=== PATIENT | female | born 1990 | race Caucasian/White ===

== ENCOUNTER 2018-02-25 21:21 | Observation (INO) | payer MEDICAID, SELFPAY ==
[2018-02-25 22:03] VITALS: BMI 32.1
[2018-02-25] MEDS ORDERED: Milk Of Magnesia 30 ML UDCUP PO PRN (22:50)
[2018-02-25] MEDS ORDERED: Ondansetron HCl/PF 4 MG/2 ML Vial IVP PRN (22:50)
[2018-02-25] MEDS ORDERED: Ondansetron ODT 4 MG TAB PO PRN (22:50)
[2018-02-25] MEDS ORDERED: Acetaminophen 325 MG TAB PO PRN (22:50)
[2018-02-25] MEDS ORDERED: Acetaminophen 650 MG Suppository PR PRN (22:50)
[2018-02-25] MEDS ORDERED: Calcium Carbonate 500 MG ChewTAB PO PRN (22:50)
[2018-02-25] MEDS ORDERED: Famotidine/PF 20 mg/2ml Vial SLOW IVP SCH (23:00)
[2018-02-26] MEDS: D5 1/2 NS w/20 mEq KCL 1,000 ML IV SCH ×3 (00:44→14:49)
[2018-02-26] MEDS: Piperacillin/Tazobactam 3.375 GM in Sodium Chloride 0.9% 100 ML IVPB SCH ×3 (00:44→10:58)
[2018-02-26] MEDS ORDERED: Ketorolac Tromethamine 30 MG/ML VIAL IVP PRN (00:59)
--- NOTE | 2018-02-26 01:38 | HP ---
DATE OF ADMISSION: 02/25/2018 PRIMARY CARE PHYSICIAN: Dr. Mellisa Burroughs. The patient was seen and examined on 02/25/2018. CHIEF COMPLAINT: Nausea, vomiting with abdominal discomfort of one-day duration. HISTORY OF PRESENT ILLNESS: Patient is a 27-year-old female who presented to the emergency room at [facility] with nausea, vomiting, and abdominal discomfort that has been going on for the last 24 ho urs. She had several bouts of vomiting along with abdominal cramping, mainly over the right upper qu adrant and epigastric region. She denies any diarrhea, constipation, or weight loss. No fever or ch ills reported. She is currently on her menstrual period. She denies any headache, photophobia, phon ophobia, or eating outside. No other family members with similar complaint. In the emergency room at [place], her initial vital signs showed temperature 95.4, respirations 24, pulse of 53 with blood pressure 132/66 with O2 saturation of 100% on room air. White cell count was 15.6 with neutrophils of 89.7. 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 PAST MEDICAL HISTORY: Reviewed with the patient and none. PAST SURGICAL HISTORY: Reviewed with the patient and none. ALLERGIES: The patient is allergic to FLEXERIL. CURRENT HOME MEDICATIONS: Reviewed with the patient and none. SOCIAL HISTORY: She abuses cannabis on a daily basis. She also smokes cigarettes. She currently li ves at home with her family. 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 FAMILY HISTORY: Positive for diabetes mellitus type 2. REVIEW OF SYSTEMS: The following complete review of systems was negative, unless otherwise mentioned in the HPI or below: Constitutional: Weight loss or gain, ability to conduct usual activities. Sk in: Rash, itching. Eyes: Double vision, pain. ENT/Mouth: Nose bleeding, neck stiffness, pain, te nderness. Cardiovascular: Palpitations, dyspnea on exertion, orthopnea. Respiratory: Shortness of breath, wheezing, cough, hemoptysis, fever or night sweats. Gastrointestinal: Poor appetite, abdom inal pain, heartburn, nausea, vomiting, constipation, or diarrhea. Genitourinary: Urgency, frequenc y, dysuria, nocturia. Musculoskeletal: Pain, swelling. Neurologic/Psychiatric: Anxiety, depressio n. Allergy/Immunologic: Skin rash, bleeding tendency. PHYSICAL EXAMINATION: VITAL SIGNS: As discussed above. GENERAL: A 27-year-old female in mild distress due to abdominal discomfort. Nausea has somewhat imp roved. HEENT: Atraumatic, normocephalic. Sclerae are anicteric. Moist mucous membrane. No oral lesion. NECK: Supple. No JVD appreciated. No carotid bruits. LUNGS: Clear to auscultation bilaterally. No wheezing, rales or rhonchi. HEART: S1, S2 present. Regular rate and rhythm. No murmur, rubs, or gallops appreciated. ABDOMEN: Diffusely tender mainly over the right side. No rebound, guarding, or costovertebral angle tenderness. Bowel sounds were present. EXTREMITIES: No edema or calf tenderness. NEUROLOGIC: Grossly nonfocal. Moves all four extremities. PSYCHIATRY: Alert, awake, oriented x3. SKIN: Warm and dry. LYMPH NODES: No palpable lymph nodes in the neck. PERIPHERAL VASCULAR: Radial pulses palpable bilaterally. MUSCULOSKELETAL: No joint swelling or tenderness. LABORATORY AND X-RAY FINDINGS: As discussed above. Sodium was 141, potassium 3.6 with creatinine 0. 7. LFTs were normal range. Amylase and lipase were in normal range. Urinalysis was negative for wb c's. It showed 1+ bacteria. test was negative. IMPRESSION AND PLAN: 1. Nausea, vomiting with abdominal discomfort. The patient has leukocytosis with left shift. Right upper quadrant ultrasound will be done to rule out gallbladder pathology. 2. Dehydration secondary to #1. Patient has been started on IV fluids. She will be kept n.p.o. 3. Tobacco dependence. The patient was counseled. 4. Cannabis abuse. The patient was counseled to quit cannabis as this may be contributing to nausea and vomiting. 5. Metabolic acidosis secondary to dehydration. We will repeat labs in a.m. 6. Obesity with body mass index of 32.1. Lifestyle modification was emphasized. Plan of care was discussed with the patient in detail. She stated understanding. The patient will be monitored overnight as observation. Further hospital course will depend on the r ight upper quadrant ultrasound finding.
[2018-02-26] MEDS ORDERED: Sodium Chloride 0.9% 10 ML ONE ×2 (04:32→06:06)
[2018-02-26 05:13] LABS: #Lymphocytes 2.1 thou/uL (1.20-3.40); #Monocytes 0.7 thou/uL (0.11-0.59); #Neutrophils 9.1 thou/uL (1.40-6.50); %Basophils 0.1 % (0.0-1.0); %Eosinophils 0.3 % (0.0-10.0); %Lymphocytes 17.8 % (21.0-51.0); %Monocytes 5.6 % (0.0-10.0); %Neutrophils 76.3 % (42.0-75.0); Hemoglobin 12.2 g/dL (12.0-16.0); Mean Corpuscular HGB CONC 34.2 g/dL (32.0-36.0); Mean Corpuscular Hemoglobin 30.1 pg (27.0-31.0); Mean Corpuscular Volume 88.1 fl (81.0-99.0); Mean Platelet Volume 6.8 fL (7.4-10.4); Platelet Count 235 thou/uL (130-400); RBC Distribution Width 12.5 % (11.5-14.5); Red Blood Cell (RBC) Count 4.05 mill/uL (4.20-5.40); White Blood Cell (WBC) Count 11.9 thou/uL (4.8-10.8)
[2018-02-26 05:36] LABS: ALT (SGPT) 7 U/L (8-55); AST (SGOT) 12 U/L (5-34); Albumin 3.8 g/dL (3.5-5.0); Alkaline Phosphatase 51 U/L (40-150); Anion Gap 10 mmol/L (10-20); BUN (Urea Nitrogen) 7 mg/dL (7.0-18.7); Bilirubin, Total 0.4 mg/dL (0.2-1.2); Calc. Creatinine Clearance 188 mL/min (70-130); Calcium 8.5 mg/dL (7.8-10.44); Carbon Dioxide 22 mmol/L (22-29); Chloride 110 mmol/L (98-107); Estimated GFR-MDRD Greater than 90; Globulin 2.2 g/dL (2.4-3.5); Glucose 133 mg/dL (70-105); Lipase 19 U/L (8-78); Magnesium 1.8 mg/dL (1.6-2.6); Potassium 3.7 mmol/L (3.5-5.1); Sodium 138 mmol/L (136-145)
--- NOTE | 2018-02-26 07:53 | ULT ---
RIGHT UPPER QUADRANT ULTRASOUND: DATE: 02/25/18. HISTORY: Right upper quadrant abdominal pain and nausea FINDINGS: Multiple mobile echogenic foci are seen in the gallbladder lumen related to multiple gallbladder calc matt. The gallbladder wall thickness is borderline increased in thickness measuring 0.3 cm with a que stion of minimal edema within the region of the gallbladder wall. Pipeline Integrity Engineer mentions perichol ecystic fluid, although this is not readily appreciated on the provided sonographic images. The comm on duct measures 0.3 cm diameter, which is within normal limits. The visualized portions of the pancreas, visualized portions of the IVC, liver, and right kidney demo nstrate a normal sonographic appearance. The right kidney measures 11.5 cm in length. IMPRESSION: Cholelithiasis with borderline gallbladder wall thickening. If there is concern for cholecystitis, h epatobiliary study may be helpful for further evaluation. POS: [facility]
[2018-02-26] MEDS ORDERED: Famotidine/PF 20 mg/2ml Vial SLOW IVP SCH (09:00)
--- NOTE | 2018-02-26 09:09 | PDOC.PN ---
- Subjective Encounter Start Date: 02/26/18 Encounter Start Time: 09:07 Subjective: N/V especially with menses - Objective Resuscitation Status: Resuscitation Status FULL:Full Resuscitation MAR Reviewed: Yes Vital Signs & Weight: Vital Signs (12 hours) Temp Pulse Resp BP BP Pulse Ox 02/26/18 08:30 55 L 16 105/53 L 02/26/18 07:43 98.6 F 61 18 100 02/26/18 04:36 99.7 F H 70 16 109/54 L 97 02/25/18 22:50 96 02/25/18 22:40 99.0 F 51 L 20 02/25/18 22:38 99.0 F 51 L 20 107/62 98 Weight Weight 204 lb 11.2 oz I&O: 02/25/18 02/26/18 02/27/18 06:59 06:59 06:59 Intake Total 630 Output Total 226 Balance 404 Result Diagrams: 02/26/18 04:22 02/26/18 04:22 Phys Exam - Physical Examination Neck: no JVD Respiratory: clear to auscultation bilateral Cardiovascular: RRR, no significant murmur Gastrointestinal: soft, positive bowel sounds Musculoskeletal: no edema Dx/Plan (1) Nausea & vomiting Code(s): R11.2 - NAUSEA WITH VOMITING, UNSPECIFIED Status: Acute (2) Cholelithiasis Code(s): K80.20 - CALCULUS OF GALLBLADDER W/O CHOLECYSTITIS W/O OBSTRUCTION Status: Acute Qualifiers: Cholelithiasis location: gallbladder Biliary obstruction: without biliary obstruction (3) Abdominal pain Code(s): R10.9 - UNSPECIFIED ABDOMINAL PAIN Status: Acute (4) Tobacco abuse Code(s): Z72.0 - TOBACCO USE Status: Acute - Plan HIDA scan pending * .
[2018-02-26 11:38] VITALS: BP 122/57; TEMP 98.7
--- NOTE | 2018-02-26 14:50 | DIS ---
DATE OF ADMISSION: 02/25/2018 DATE OF DISCHARGE: 02/26/2018 PRIMARY CARE PROVIDER: Mellisa Burroughs M.D. DIAGNOSES: 1. Nausea and vomiting, resolved. 2. Abdominal pain, resolved. 3. Tobacco abuse. 4. Cholelithiasis. DISCHARGE MEDICATIONS: Zofran 4 mg oral dissolving tablet q.6 hours p.r.n. CODE STATUS: FULL. PENDING AT THE TIME OF DISCHARGE: Nothing. DIET: As tolerated. CONSULTATIONS: None. PROCEDURES: None. HOSPITAL COURSE: The patient referred for nausea, vomiting, and abdominal discomfort for 24 hours. She states to me that this happens mostly at the beginning of her periods. She says she has very trenton nful periods and it has started. Physical examination was unrevealing. Laboratories: CBC: White c ount 11.9, hemoglobin 12.2, platelet count 235,000. Liver function tests normal. Chemistries normal . A gallbladder ultrasound revealed cholelithiasis with borderline gallbladder wall thickening. Thi s was discussed with her. A HIDA scan was scheduled. She decided against having it. She said she f elt fine. She did not want to have the HIDA scan and wanted to be discharged. I have discussed the situation with her, recommended followup with her PCP in 1 week, gave her a prescription for Zofran o ral dissolving tablets 4 mg p.o. q.6 hours p.r.n.
[2018-02-26] MEDS ORDERED: Enoxaparin Sodium 30 MG/0.3 ML SYRINGE SC SCH (21:00)
== END 2018-02-26 15:26 | disposition home or self-care (01) ==
LOC: 2SW 21:21
PROVIDERS: ADMIT Internal Medicine; ATTEND Internal Medicine
DX: R11.2 Nausea with vomiting, unspecified (principal); R10.11 Right upper quadrant pain; R10.13 Epigastric pain; K80.20 Calculus of gallbladder without cholecystitis without obstruction; F17.210 Nicotine dependence, cigarettes, uncomplicated; F12.10 Cannabis abuse, uncomplicated; E86.0 Dehydration; E87.2 Acidosis; E66.9 Obesity, unspecified; Z68.32 Body mass index [BMI] 32.0-32.9, adult; Z88.8 Allergy status to other drugs, medicaments and biological substances
CPT/HCPCS: 36415; 76705; 80053; 83690; 83735; 85025; 96361; 96365; 96366; 96375; 96376; A4216; G0378; J1885; J2405; J2543; J7050; S0028

== ENCOUNTER 2018-12-14 13:31 | Outpatient (CLI) | payer OTHER ==
--- NOTE | 2018-12-14 15:02 | ULT ---
COMPLETE OBSTETRICAL ULTRASOUND: INDICATIONS: Evaluate anatomy and cervical length. COMPARISON: None. FINDINGS: There is a single live intrauterine gestation in a vertex presentation. The placenta is anterior in location without evidence of previa. The cervical length is 3.4 cm. The ANNETTA is 14.5 cm. Small plac ental conrad is seen within the placenta, within its mid substance, measuring up to 2 cm in size. Cardiac activity is noted at 128 beats per minute. Biparietal diameter is 4.73 cm, giving an estimated gestational age of 20 weeks 3 days. Head circumference is 18.38 cm, giving an estimated gestational age of 20 weeks 6 days. Abdominal circumference is 15.1 cm, giving an estimated gestational age of 20 weeks 3 days. Femoral length is 3.41 cm, giving an estimated gestational age of 20 weeks 6 days. The average gestational age by ultrasound, based on the biometric measurements, is 20 weeks 5 d ays, with an estimated due date of 04/28/2019. This does correspond to the clinical dates. The estimated weight is 359 g, plus or minus 53 g (13 oz, plus or minus 2 oz). This is the 35t h percentile, based on Hadlock. The visualized head was poorly visualized. The lateral ventricles were or normal size. The c erebellum and posterior fossa were not well interrogated. Four-chamber heard, stomach, kidneys, bladder, cord insertion, spine, extremities, and three vessel c ord were within normal limits. Lips and nose were not well seen. IMPRESSION: 1. Single live intrauterine gestation, with size and dates as above. 2. The head was not well seen due to positioning. The lips and nose were not well seen. A follow-up examination in one to two weeks to document a full anatomic survey is recommended. 3. Small suspected placenta conrad within the central aspect of the placenta. 4. Cervical length of 3.4 cm. POS: [facility]
== END 2018-12-14 13:32 | disposition home or self-care (01) ==
LOC: BICULT 13:31
PROVIDERS: ATTEND Family Medicine
DX: Z34.02 Encounter for supervision of normal first pregnancy, second trimester (principal); Z3A.12 12 weeks gestation of pregnancy
CPT/HCPCS: 76805

== ENCOUNTER 2020-01-19 14:39 | Outpatient (CLI) | payer OTHER ==
--- NOTE | 2020-01-19 15:50 | ULT ---
OB ULTRASOUND: 01/19/20 HISTORY: anatomy. FINDINGS: There is a single live intrauterine gestation is seen and the measurements corresponding to an estim ated gestational age of 20 weeks, 2 days and RACHEAL at 06/05/2020. Estimated weight measures 338 gr ams or 12 oz (73rd percentile by Hadlock criteria). measurements are as follows: BPD 4.64 cm 20 weeks, 1 day HC 17.75 cm 20 weeks, 2 days AC 14.91 cm 20 weeks, 2 days FL 3.27 cm 20 weeks, 2 days heart rate measures 139 beats per minute. Placenta is anteriorly located without evidence of pl acenta previa. ANNETTA measures 15.1 cm. Cervical length measures 4.5 cm. A three vessel cord, cord insertion, kidneys, bladder, stomach, four chambered heart, lateral v entricles, cerebellum, spine, lips/nose, upper and lower extremities are visualized. No definite feta l anomalies are seen. IMPRESSION: Single live IUP of 20 weeks, 2 days estimated gestational age and RACHEAL at 06/05/2020. POS: [facility]
== END 2020-01-19 14:40 | disposition home or self-care (01) ==
LOC: BICULT 14:39
PROVIDERS: ATTEND Family Medicine
DX: Z34.82 Encounter for supervision of other normal pregnancy, second trimester (principal); Z3A.20 20 weeks gestation of pregnancy
CPT/HCPCS: 76805

== ENCOUNTER 2020-02-18 16:36 | Day surgery (SDC) | payer OTHER ==
[2020-02-18] MEDS ORDERED: hydrALAZINE 20 MG/ML VIAL SLOW IVP PRN (16:59)
[2020-02-18 17:17] VITALS: BMI 40.7
[2020-02-18] MEDS ORDERED: Ondansetron ODT 4 MG TAB PO SCH (17:18)
[2020-02-18] MEDS ORDERED: Lidocaine 2% Viscous Solution 10 ML, Aluminum & Magnesium Hydroxide 30 ML SSW SCH (17:30)
[2020-02-18] MEDS ORDERED: Acetaminophen 500 MG TAB PO SCH (17:30)
[2020-02-18 17:44] LABS: #Basophils 0.1 thou/uL (0.0-0.2); #Eosinphils 0.1 thou/uL (0.0-0.7); #Lymphocytes 2.3 thou/uL (1.20-3.40); #Monocytes 0.6 thou/uL (0.11-0.59); #Neutrophils 9.8 thou/uL (1.40-6.50); %Basophils 0.7 % (0.0-1.0); %Lymphocytes 17.6 % (21.0-51.0); %Monocytes 4.9 % (0.0-10.0); %Neutrophils 75.8 % (42.0-75.0); Hemoglobin 11.5 g/dL (12.0-16.0); Mean Corpuscular HGB CONC 33.1 g/dL (32.0-36.0); Mean Corpuscular Hemoglobin 28.4 pg (27.0-31.0); Mean Corpuscular Volume 85.9 fL (78.0-98.0); Platelet Count 306 thou/uL (130-400); RBC Distribution Width 13.4 % (11.5-14.5); Red Blood Cell (RBC) Count 4.05 mill/uL (4.20-5.40)
--- NOTE | 2020-02-18 17:48 | PDOC.FPROB ---
FMR OB H&P: HPI - History of Present Illness Chief Complaint: Upper Abdominal Pain Indentification: 29 yo @ 24.0 wks History of Present Illness: 29 yo comes in with worsening epigastric abdominal pain. Reports radiates to her back and chest. Reports pain as dull stabbing pain. Pt states has been going off and on for the last week. Reports took some tums which didn't seem to help. Took some tylenol which helped for a little bit but then pain came back. Reports having episodes of vomiting once or twice a day the last few days. Was able to eat and keep down today. Pt denies any SOB. Denies any fever or chills. Pt denies any urinary sx's, burning with urination. Pt denies any vaginal discharge, itching or irritation. Pt denies any vaginal bleeding. Reports FM. Denies ctx. Denies LOF. Pt denies any leg swelling. Pt reports having history of being told she had gallstones. Pt never addressed as she got with her first kid. States did not have any trouble in that . 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 Reports vaping. Denies any alcohol or illicit drug use - Family History Family History: Hx of cancer in the family unsure of what kind. Mom- diabetes. FMR OB H&P: Medications - Current Home Medications: Medication Instructions Recorded Confirmed Type Calcium Carbonate [Tums] 1,000 mg PO QAM-WM 04/25/19 04/25/19 History Pnv No.121/Iron/Folic Acid 1 each PO DAILY 04/25/19 04/25/19 History [ Multivitamin Tablet] Ferrous Sulfate [Feosol] 325 mg PO BID-WM #90 tab 04/27/19 Rx Acetaminophen [Tylenol Extra 1,000 mg PO NOW tab 02/18/20 Rx Strength] Famotidine 20 mg PO BID #60 tablet 02/18/20 Rx Ondansetron [Zofran ODT] 4 mg PO Q6HR PRN #30 tab 02/18/20 Rx Allergies/Adverse Reactions: Allergies Allergy/AdvReac Type Severity Reaction Status Date / Time cyclobenzaprine Allergy Severe Swollen Verified 02/18/20 17:16 [From Flexeril] Lips FMR OB H&P: ROS - Review of Systems General: denies: fever/chills, weight/appetite/sleep changes Eyes: denies: vision changes, double vision ENT: denies: nasal congestion Cardiovascular: reports: chest pain. denies: palpitation, edema Respiratory: denies: cough, congestion, shortness of breath Gastrointestinal: reports: abdominal pain, nausea, vomiting. denies: indigestion, bloating, cramping, diarrhea, constipation Genitourinary (Female): denies: incontinence, dysuria, hematuria, vaginal discharge, vaginal pain, vaginal bleeding, contractions, vaginal pressure Musculoskeletal: denies: pain, tenderness Neurologic: denies: numbness, weakness Integumentary: denies: itching, rash Hematologic/Lymphatic: denies: prolonged or excessive bleeding Psychological: denies: depression, anxiety FMR OB H&P: Vital Signs - Heart Tones Baseline: 138 (by doppler) FMR OB H&P: Physical Exam - Physical Exam General: NAD, awake, alert and oriented HEENT: normocephalic and atraumatic, PERRLA, grossly normal vision, grossly normal hearing Neck: supple, FROM, trachea midline Heart: RRR, normal S1/S2, no murmurs/rubs/gallops, pulses present, no edema General: CTAB, no respiratory distress, good air movement, no rales/rhonchi, no wheezing, no retractions Abdomen: soft, gravid, bowel sound present, other (No rebound or guarding. Foot tap negative for abdominal pain. No CVA tenderness) Deviation from normal: Smiley negative. Mild tenderness to deep palpation in RUQ , Neurological: sensation to pain,touch and proprioception grossly normal Skin: no rash, good tugor, capillary refill <2 seconds, no jaundice Lymphatic: no unusual bruising or bleeding FMR OB H&P: Results - Labs Lab results: Laboratory Results - last 24 hr 02/18/20 17:35 WBC 13.0 H RBC 4.05 L Hgb 11.5 L Hct 34.8 L MCV 85.9 MCH 28.4 MCHC 33.1 RDW 13.4 Plt Count 306 MPV 7.0 L Neutrophils % 75.8 H Lymphocytes % 17.6 L Monocytes % 4.9 Eosinophils % 1.0 Basophils % 0.7 Neutrophils # 9.8 H Lymphocytes # 2.3 Monocytes # 0.6 H Eosinophils # 0.1 Basophils # 0.1 FMR OB H&P: A/P - Problem List (1) (spontaneous vaginal delivery) Status: Acute Code(s): O80 - ENCOUNTER FOR FULL-TERM UNCOMPLICATED DELIVERY (2) Abdominal pain Status: Acute Code(s): R10.9 - UNSPECIFIED ABDOMINAL PAIN (3) Cholelithiasis Status: Acute Code(s): K80.20 - CALCULUS OF GALLBLADDER W/O CHOLECYSTITIS W/O OBSTRUCTION Qualifiers: Cholelithiasis location: gallbladder Biliary obstruction: without biliary obstruction (4) Nausea & vomiting Status: Acute Code(s): R11.2 - NAUSEA WITH VOMITING, UNSPECIFIED (5) Tobacco abuse Status: Acute Code(s): Z72.0 - TOBACCO USE Disposition: 29 yo @ 24.0 weeks comes in w/ upper abdominal pain Cholelithiasis -Will order CBC and CMP to check on bili and liver enzymes -RUQ US ordered -Discussed low fat diet to help prevent pain. Discussed pain control -Tylenol given -Does not appear to have any sign of infection or problem that requires immediate intervention. Likely will need addressed post pending lab results and sono. GERD -Possibly contributing -Zofran and GI cocktail-White administered. Will see if helps with pain and possibly px some medicine for outpt \ -UA ordered - HR 130's. Tobacco Abuse -Counseled on cessation Discussion: Date/Time: 02/18/201743 This H&P was discussed with [] and [] who agree with the above documentation and plan. Addendum - Attending - Attending Attestation Date/Time: 02/18/202025 I personally evaluated the patient and discussed the management with Dr. Ames. I agree with the History, Examination, Assessment and Plan documented above.
--- NOTE | 2020-02-18 18:01 | ULT ---
RIGHT UPPER QUADRANT ULTRASOUND CLINICAL HISTORY: Right upper quadrant abdominal pain with history of and gallstones. COMPARISON: Prior right upper quadrant ultrasound dated September 27, 2017 FINDINGS: Liver:Normal echotexture without focal mass. Intrahepatic bile ducts: No intrahepatic or extrahepatic biliary dilation.; Common bile duct: 5.4 mm. Gallbladder: Multiple stones within the gallbladder. No gallbladder wall thickening is evident. Smiley's sign:None Main portal vein:Patent with hepatopedal flow. Pancreas:Visualized pancreas appears normal. Right kidney: Right kidney measures 12.9 x 4.8 x 5.7 cm. No focal renal lesion. Mild right hydronephr osis. Additional findings: None. IMPRESSION: 1. Cholelithiasis without sonographic evidence of acute cholecystitis. 2. Mild right hydronephrosis. This may be physiologic in nature related to patient's .
[2020-02-18 18:04] LABS: ALT (SGPT) 42 U/L (8-55); AST (SGOT) 69 U/L (5-34); Albumin 3.7 g/dL (3.5-5.0); Alkaline Phosphatase 166 U/L (40-110); Anion Gap 13 mmol/L (10-20); BUN (Urea Nitrogen) 6 mg/dL (7.0-18.7); Bilirubin, Total 0.7 mg/dL (0.2-1.2); Calc. Creatinine Clearance 242 mL/min (70-130); Calcium 9.9 mg/dL (7.8-10.44); Carbon Dioxide 25 mmol/L (22-29); Chloride 103 mmol/L (98-107); Estimated GFR-MDRD Greater than 90; Globulin 3.2 g/dL (2.4-3.5); Glucose 85 mg/dL (70-105); Potassium 3.8 mmol/L (3.5-5.1); Protein, Total 6.9 g/dL (6.0-8.3); Sodium 137 mmol/L (136-145)
[2020-02-18 18:06] LABS: Bacteria/HPF None Seen HPF (None Seen); Bilirubin Negative (Negative); Blood, Urine Negative (Negative); Clarity Clear (Clear); Glucose, Urine (Dipstick) Normal (Negative); Leukocyte Negative Leu/uL (Negative); Nitrite Negative (Negative); Protein, Urine (Dipstick) Negative (Neg-Trace); RBC/HPF 0-3 HPF (0-3); Squamous Epithelial 0-3 HPF (0-3); Urobilinogen Normal mg/dL (Less than 2); WBC/HPF 0-3 HPF (0-3)
== END 2020-02-18 18:50 | disposition home or self-care (01) ==
LOC: L&D/OP 16:36
PROVIDERS: ATTEND Internal Medicine
DX: O99.612 Diseases of the digestive system complicating pregnancy, second trimester (principal); K80.20 Calculus of gallbladder without cholecystitis without obstruction; K21.9 Gastro-esophageal reflux disease without esophagitis; O99.89 Other specified diseases and conditions complicating pregnancy, childbirth and the puerperium; N13.30 Unspecified hydronephrosis; O99.332 Smoking (tobacco) complicating pregnancy, second trimester; F17.290 Nicotine dependence, other tobacco product, uncomplicated; Z79.899 Other long term (current) drug therapy; Z3A.24 24 weeks gestation of pregnancy; Z88.8 Allergy status to other drugs, medicaments and biological substances
CPT/HCPCS: 36415; 76705; 80053; 81003; 85025; Q0162

== ENCOUNTER 2020-05-29 21:06 | Day surgery (SDC) | payer OTHER ==
[2020-05-29 22:05] LABS: Amnisure Test No Membranes Rupture (No Rupture)
[2020-05-29 22:06] LABS: Amnisure Internal Control QC ACCEPTABLE (ACCEPTABLE)
[2020-05-29] MEDS ORDERED: hydrALAZINE 20 MG/ML VIAL SLOW IVP PRN (22:40)
--- NOTE | 2020-05-29 23:34 | CON ---
DATE OF CONSULTATION: 05/29/2020 PRIMARY OB: Eduardo Burnett MD CHIEF COMPLAINT: Leakage of fluid. HISTORY OF PRESENT ILLNESS: The patient is a 30-year-old G2, P1 female with an intrauterine at 38 weeks and 3 days, presenting with complaints of leakage of fluid. The patient reports that she has had on three different occasions leaking fluid today. This has not been so much that it is overflown her panty liner, but her pad has gotten wet. She says that she wiped once a day that was more of a mucousy kind of a bloody white. She denies having any leaking down her leg or other gross leakage of fluid. She reports she is having some contractions, but not really feeling anything real severe. The patient denies fever, cough, headache, chest pain, shortness of breath, nausea, or vomiting. She has had some loose stools. Denies constipation. PAST MEDICAL HISTORY: She does have a history of gallbladder stones that she has managed with this . PAST SURGICAL HISTORY: Negative. ALLERGIES: FLEXERIL. MEDICATIONS: 1. Iron. 2. vitamins. SOCIAL HISTORY: The patient is a tobacco user. She smokes about a couple cigarettes a day. Denies drug or alcohol use. She reports that she discontinued marijuana in August 2019. OB LABS: Blood type is O positive. Antibody screen is negative. RPR is nonreactive in the first and third trimester. HIV is negative in the first and third trimester. She is rubella nonimmune. GC and chlamydia negative. 1-hour Glucola is 105. She is GBS negative. REVIEW OF SYSTEMS: Per HPI. PHYSICAL EXAMINATION: VITAL SIGNS: Blood pressure is 130/66, heart rate of 88, respiratory rate of 18, saturating 97% on room air, and temperature 98.3. GENERAL: She appears to be in no acute distress. She is alert, oriented, cooperative, and pleasant to interact with. HEAD: Normocephalic and atraumatic. LUNGS: Clear to auscultation bilaterally. HEART: She has a regular rate and rhythm. ABDOMEN: Gravid, soft, and nontender. EXTREMITIES: Nontender and nonedematous. : Vulva is without masses, lesions, or erythema. Vagina is moist. There is no pulling present. She has a visibly closed cervix with just a thick mucousy discharge present at the cervical os. EXTREMITIES: Nontender with minimal edema. DIAGNOSTIC DATA: heart tracing shows the fetus with a baseline in the 130s with moderate long-term variability, positive 15 x 15 accelerations. Tocometer showing occasional contractions with some irritability. AmniSure test is negative. ASSESSMENT AND PLAN: The patient is a 30-year-old female, presenting with complaints of rupture of membranes. No evidence on physical exam or on laboratory testing. Fetus has a category 1 tracing and reactive NST. The patient is being discharged home with instructions to follow up with her primary OB on as scheduled. Job ID: [id number]
== END 2020-05-29 22:45 | disposition home or self-care (01) ==
LOC: L&D/OP 21:06
PROVIDERS: ATTEND Family Medicine
DX: O99.89 Other specified diseases and conditions complicating pregnancy, childbirth and the puerperium (principal); N89.8 Other specified noninflammatory disorders of vagina; O99.333 Smoking (tobacco) complicating pregnancy, third trimester; F17.210 Nicotine dependence, cigarettes, uncomplicated; Z3A.38 38 weeks gestation of pregnancy; Z87.19 Personal history of other diseases of the digestive system; Z88.8 Allergy status to other drugs, medicaments and biological substances
CPT/HCPCS: 84112

== ENCOUNTER 2020-06-01 08:50 | Inpatient (IN) | payer OTHER ==
[2020-06-01] MEDS ORDERED: hydrALAZINE 20 MG/ML VIAL SLOW IVP PRN ×3 (09:12→17:51)
[2020-06-01 09:31] VITALS: BMI 41.5
[2020-06-01] MEDS ORDERED: Butorphanol Tartrate 1 MG/ML VIAL SLOW IVP PRN (09:45)
[2020-06-01] MEDS ORDERED: Lidocaine 1% (PF) 30 ML VIAL SC PRN (09:45)
[2020-06-01] MEDS ORDERED: Ondansetron PF 4 MG/2 ML Vial IVP PRN ×2 (09:45→17:51)
[2020-06-01] MEDS ORDERED: HYDROcodone/Acetaminophen 5/325 mg Tablet PO PRN ×3 (09:45→17:51)
[2020-06-01] MEDS ORDERED: Diphenoxylate HCl/Atropine Tablet PO PRN ×2 (09:45)
[2020-06-01] MEDS ORDERED: Ibuprofen 800 MG TAB PO PRN (09:45)
[2020-06-01] MEDS ORDERED: Methylergonovine 0.2 MG/ML VIAL IM PRN (09:45)
[2020-06-01] MEDS ORDERED: Acetaminophen 500 MG TAB PO PRN (09:45)
[2020-06-01] MEDS ORDERED: Misoprostol 200 MCG TAB PR PRN (09:45)
[2020-06-01] MEDS ORDERED: Promethazine HCl 25 MG/ML VIAL IM PRN ×2 (09:45→17:51)
[2020-06-01] MEDS ORDERED: Carboprost 250 MCG/ML AMP IM PRN (09:45)
[2020-06-01] MEDS ORDERED: NS / Oxytocin 40 units/1000ml 1,000 ML IV PRN (09:45)
[2020-06-01] MEDS: Lactated Ringer's 1,000 ML IV SCH ×2 (10:44→11:44)
[2020-06-01] MEDS ORDERED: Fentanyl 4 mcg/Bup 0.1% Cadd 100 ML ONE (11:08)
[2020-06-01 11:30] LABS: Hemoglobin 11.8 g/dL (12.0-16.0); Mean Corpuscular HGB CONC 32.7 g/dL (32.0-36.0); Mean Corpuscular Hemoglobin 27.1 pg (27.0-31.0); Mean Corpuscular Volume 82.9 fL (78.0-98.0); Mean Platelet Volume 7.4 fL (7.4-10.4); Platelet Count 345 thou/uL (130-400); RBC Distribution Width 12.8 % (11.5-14.5); Red Blood Cell (RBC) Count 4.34 mill/uL (4.20-5.40); White Blood Cell (WBC) Count 17.2 thou/uL (4.8-10.8)
[2020-06-01 12:05] LABS: Syphilis Antibody Nonreactive (Nonreactive); Syphilis Antibody Index 0.12 S/CO (<1.00 Non-Reactive)
[2020-06-01 12:07] LABS: HBSAg Index 0.13 S/CO (0-0.99); Hep B Surf Ag Non-Reactive S/CO (NonReactive)
[2020-06-01] MEDS ORDERED: Bupivacaine/Epinephrine 0.25% 30 ML VIAL ONE (13:55)
[2020-06-01] MEDS ORDERED: NS w/ Oxytocin 10 units 500 ML ONE (15:35)
[2020-06-01] MEDS ORDERED: NS w/ Oxytocin 10 units 500 ML IV SCH ×2 (15:45)
[2020-06-01] MEDS ORDERED: Bisacodyl 10 MG SUPP PR PRN (17:51)
[2020-06-01] MEDS ORDERED: Lanolin Ointment 7 GM TUBE TOP PRN (17:51)
[2020-06-01] MEDS ORDERED: diphenhydrAMINE 25 MG CAP PO PRN (17:51)
[2020-06-01] MEDS ORDERED: Milk Of Magnesia 30 ML UDCUP PO PRN (17:51)
[2020-06-01] MEDS ORDERED: Benzocaine-Menthol 82.5 ML CAN TOP PRN (17:51)
[2020-06-01] MEDS ORDERED: NS / Oxytocin 40 units/1000ml 1,000 ML ONE (17:55)
[2020-06-01] MEDS: NS / Oxytocin 40 units/1000ml 1,000 ML IV SCH ×2 (17:58→20:06)
[2020-06-01 18:35] LABS: SARS-CoV-2 MS2 Positive; SARS-CoV-2 N Gene Negative; SARS-CoV-2 S Gene Negative; SARS-CoV-2 by NAA Not Detected (NotDetected); SARS-CoV-2 orf1ab Negative
[2020-06-01] MEDS: HYDROcodone/Acetaminophen 5/325 mg Tablet PO PRN (21:14)
[2020-06-01] MEDS: Docusate Calcium (SURFAK) 240 MG CAP PO SCH (21:14)
[2020-06-01] MEDS: Ibuprofen 800 MG TAB PO SCH (21:15)
[2020-06-02] MEDS: Ibuprofen 800 MG TAB PO SCH ×2 (05:26→13:02)
[2020-06-02] MEDS: Ferrous Sulfate 325 MG TAB PO SCH ×2 (07:08→16:50)
[2020-06-02] MEDS: Docusate Calcium (SURFAK) 240 MG CAP PO SCH (08:41)
[2020-06-02] MEDS ORDERED: Adacel (T-DAP) 0.5 ML SYRINGE IM ONE (09:00)
[2020-06-02] MEDS ORDERED: Prenatal Vitamin 1 TAB PO SCH (09:00)
[2020-06-02] MEDS: HYDROcodone/Acetaminophen 5/325 mg Tablet PO PRN ×2 (13:02→17:48)
[2020-06-02 16:19] VITALS: BP 126/65; TEMP 98.2
== END 2020-06-02 18:30 | disposition home or self-care (01) | DRG 807 ==
LOC: L&D/OP 08:50 → L&D 09:45 → 3SW 20:42
PROVIDERS: ADMIT Family Medicine; ATTEND Family Medicine
PROC: 10E0XZZ Delivery of Products of Conception, External Approach (ICD-10-PCS; principal; 2020-06-01)
PROC: 10907ZC Drainage of Amniotic Fluid, Therapeutic from Products of Conception, Via Natural or Artificial Opening (ICD-10-PCS; 2020-06-01)
PROC: 3E033VJ Introduction of Other Hormone into Peripheral Vein, Percutaneous Approach (ICD-10-PCS; 2020-06-01)
DX: O80 Encounter for full-term uncomplicated delivery (principal); Z37.0 Single live birth; Z20.828 Contact with and (suspected) exposure to other viral communicable diseases; Z3A.38 38 weeks gestation of pregnancy
CPT/HCPCS: 51702; 85027; 86780; 86850; 86900; 86901; 87340; 87635; 99285; J0360; J2001; J2590; U0003

== ENCOUNTER 2020-08-09 06:41 | Outpatient (CLI) | payer OTHER ==
[2020-08-09 13:13] LABS: #Basophils 0.1 10x3/uL (0.0-0.2); #Eosinphils 0.5 10x3/uL (0.0-0.5); #Monocytes 0.4 10x3/uL (0.0-1.1); %Basophils 0.6 % (0.0-2.0); %Eosinophils 5.7 % (0.0-6.0); %Lymphocytes 27.2 % (18.0-47.0); %Monocytes 5.2 % (0.0-10.0); %Neutrophils 60.9 % (40.0-75.0); Hemoglobin 12.3 g/dL (12.0-16.0); Mean Corpuscular HGB CONC 31.5 G/DL (32.0-36.0); Mean Corpuscular Volume 82.5 fl (80.0-100.0); Mean Platelet Volume 9.3 fl (7.4-10.4); Platelet Count 400 10x3/uL (130-400); RBC Distribution Width 12.8 % (11.5-14.5); Red Blood Cell (RBC) Count 4.73 10x6/uL (3.90-5.20); White Blood Cell (WBC) Count 8.1 10x3/uL (4.5-11.0)
[2020-08-09 13:16] LABS: BHCG - Serum Negative (NEGATIVE); Pregs Control Background? CLEAR/WHITE (CLR/WHITE); Pregs Control Bar Appear? YES (CONTROL BAR)
[2020-08-09 13:22] LABS: ALT (SGPT) 19 U/L (8-55); AST (SGOT) 18 U/L (5-34); Albumin 4.3 g/dL (3.5-5.0); Alkaline Phosphatase 94 U/L (40-110); Anion Gap 15 mmol/L (10-20); BUN (Urea Nitrogen) 8 mg/dL (7.0-18.7); Bilirubin, Total 0.4 mg/dL (0.2-1.2); Calc. Creatinine Clearance 0 mL/min (70-130); Calcium 9.1 mg/dL (7.8-10.44); Carbon Dioxide 23 mmol/L (22-29); Chloride 105 mmol/L (98-107); Estimated GFR-MDRD 85; Glucose 83 mg/dL (70-105); Potassium 4.2 mmol/L (3.5-5.1); Protein, Total 7.3 g/dL (6.0-8.3); Sodium 139 mmol/L (136-145)
[2020-08-09 22:56] LABS: SARS-CoV-2 MS2 Positive; SARS-CoV-2 N Gene Negative; SARS-CoV-2 S Gene Negative; SARS-CoV-2 by NAA Not Detected (NotDetected); SARS-CoV-2 orf1ab Negative
== END 2020-08-09 06:42 | disposition home or self-care (01) ==
LOC: LABBT 06:41
PROVIDERS: ATTEND Specialist
DX: Z01.812 Encounter for preprocedural laboratory examination (principal); Z20.828 Contact with and (suspected) exposure to other viral communicable diseases; K80.20 Calculus of gallbladder without cholecystitis without obstruction
CPT/HCPCS: 80053; 84703; 85025; 87635; U0003

== ENCOUNTER 2020-08-14 07:28 | Day surgery (SDC) | payer OTHER ==
[2020-08-13 12:42] VITALS: BMI 39.4
[2020-08-14] MEDS ORDERED: Acetaminophen 500 MG TAB ONE (07:50)
[2020-08-14] MEDS ORDERED: Ketorolac Tromethamine 30 MG/ML VIAL ONE (07:50)
[2020-08-14] MEDS ORDERED: PROPOFOL 200 MG/20 ML VIAL ONE (09:35)
[2020-08-14] MEDS ORDERED: Glycopyrrolate 0.2 MG/ML 5 ML SYRINGE ONE (09:35)
[2020-08-14] MEDS ORDERED: Ondansetron PF 4 MG/2 ML Vial ONE (09:35)
[2020-08-14] MEDS ORDERED: Dexamethasone 20 MG/5 ML VIAL ONE (09:35)
[2020-08-14] MEDS ORDERED: Rocuronium Bromide 10 MG/ML (10ML VIAL) ONE (09:35)
[2020-08-14] MEDS ORDERED: Bupivacaine 0.25% HCL 30 ML VIAL ONE (09:38)
[2020-08-14] MEDS ORDERED: Lidocaine 1% w/Epinephrine 1:100K 20 ML VIAL ONE (09:38)
[2020-08-14] MEDS ORDERED: Fentanyl 100 MCG/2 ML VIAL ONE ×2 (09:41→10:50)
[2020-08-14] MEDS ORDERED: HYDROcodone/Acetaminophen 5/325 mg Tablet ONE (12:05)
--- NOTE | 2020-08-14 13:01 | OP ---
DATE OF PROCEDURE: 08/14/2020 PREOPERATIVE DIAGNOSES: Symptomatic cholelithiasis/morbid obesity. POSTOPERATIVE DIAGNOSES: Symptomatic cholelithiasis/morbid obesity. PROCEDURE PERFORMED: Laparoscopic cholecystectomy. ANESTHESIA: General endotracheal. INDICATIONS: The patient is a 30-year-old obese white female. She is recognized to have cholelithiasis. She had symptoms referable to her gallbladder. She presents this time for laparoscopic cholecystectomy. PROCEDURE IN DETAIL: Informed consent was obtained. The patient was taken to the operating room where general endotracheal anesthesia was obtained with the patient in the supine position. The abdomen was prepped with Betadine and draped in the usual sterile fashion. 0.25% Marcaine with epinephrine was infiltrated below the umbilicus and a 10 mm infraumbilical incision was created. A Veress needle was passed through this incision into the peritoneal cavity. A pneumoperitoneum was established using carbon dioxide up to a pressure of 15 mmHg. Local anesthetic was infiltrated and 3 additional 5 mm right upper quadrant incisions were created. Through the mid incision, a 5 mm port was passed into the peritoneal cavity. The camera was passed through this port and under direct vision, an 11 port was passed through the infraumbilical incision. The camera was replaced through this port, and under direct vision, 2 additional 5 mm ports were passed through the incisions already created. The gallbladder was grasped and retracted in a cephalad direction. Minimal adhesions were bluntly stripped away from the apex of the gallbladder, and the apex was retracted laterally and inferiorly. Careful dissection was carried out to the apex of the gallbladder to identify the cystic duct and cystic artery. These were each carefully dissected circumferentially. The duct was of normal caliber. Both the duct and the artery were divided between clips, leaving 2 on the side to remain within the abdomen. The gallbladder was then dissected out of the gallbladder fossa using electrocautery and removed through the infraumbilical port site. The fascia was closed with 0 Vicryl suture and a GraNee needle. The right upper quadrant was inspected and irrigated. All irrigant was aspirated. All ports and instruments were removed under direct vision. Pneumoperitoneum was carefully evacuated. Additional local anesthetic was infiltrated into each port site. The skin edges were approximated with 4-0 Monocryl subcuticular sutures, and Dermabond was placed externally. There were no complications. The patient tolerated the procedure well and was taken to the recovery room in stable condition. FINDINGS: The patient's gallbladder was without acute inflammatory change. There were no adhesions to it. She had a normal gallbladder wall. The duct was small and noninflamed and a cholangiogram was not obtained. There was essentially no blood loss during the operation. Job ID: [id number]
== END 2020-08-14 12:35 | disposition home or self-care (01) ==
LOC: SDC 07:28
PROVIDERS: ATTEND Specialist
PROC: 0FT44ZZ Resection of Gallbladder, Percutaneous Endoscopic Approach (ICD-10-PCS; principal; 2020-08-14)
DX: K80.10 Calculus of gallbladder with chronic cholecystitis without obstruction (principal); F17.210 Nicotine dependence, cigarettes, uncomplicated; E66.01 Morbid (severe) obesity due to excess calories; Z68.39 Body mass index [BMI] 39.0-39.9, adult; Z88.8 Allergy status to other drugs, medicaments and biological substances
CPT/HCPCS: 88304; J0690; J1100; J1885; J2405; J2704; J3010; S0020

== ENCOUNTER 2022-05-02 09:32 | Outpatient (CLI) | payer OTHER | END 2022-05-02 09:33 | disposition home or self-care (01) | LOC: BICULT 09:32 | PROVIDERS: ATTEND Family Medicine | DX: Z34.83 Encounter for supervision of other normal pregnancy, third trimester (principal); Z3A.30 30 weeks gestation of pregnancy | CPT/HCPCS: 76805 ==